=== PATIENT | male | born 1990 | race Caucasian/White ===

== ENCOUNTER 2021-02-22 07:31 | Emergency (ER) | payer OTHER ==
[~2021-02-22] VITALS: Ht 182.9 cm; Wt 85.0 kg
[2021-02-22 07:55] VITALS: BP 155/113
[2021-02-22] MEDS ORDERED: IBUP-2028 PO (08:17)
== END 2021-02-22 08:48 ==
LOC: ER 07:31
DX: M79.641 Pain in right hand (principal); F41.9 Anxiety disorder, unspecified; W22.01XA Walked into wall, initial encounter; Y93.89 Activity, other specified; Y92.89 Other specified places as the place of occurrence of the external cause; Y99.8 Other external cause status
CPT/HCPCS: 73120; 99283